=== PATIENT | female | born 1940 | race American Indian/Alaskan Native ===

== ENCOUNTER 2016-10-23 15:31 | Emergency (ER) | payer MEDICARE, OTHER ==
[2016-10-23 15:32] VITALS: BMI 27.6
[2016-10-23 16:11] VITALS: O2SAT 100
--- NOTE | 2016-10-23 17:45 | RAD ---
PROCEDURE: Right Foot Radiographs. HISTORY: Pain, r/o fx COMPARISON: None. FINDINGS: BONES: No evidence of acute fracture. There are small calcific densities adjacent to the lateral base of the 5th distal phalanx. These may be, possibly related to old trauma. Comparison to any prior outside examination is advised. Clinical follow-up is suggested. Unlikely neoplastic origin. . JOINTS: Normal. SOFT TISSUES: Mild generalized soft tissue swelling. OTHER FINDINGS: None. IMPRESSION: No acute fracture. Calcific densities adjacent to the lateral base of the 5th distal phalanx. Likely dystrophic. Cannot rule out calcification related to neoplastic etiology though unlikely. Please correlate with any prior outside examination. Clinical followup advised.
--- NOTE | 2016-10-23 17:50 | C.PDOC ---
History Of Present Illness Pt states she injured her right foot about 1 week ago. She has mild pain since. She also has swelling, but she states that has been there for a long time. Time Seen by Provider: 10/23/16 16:34 Chief Complaint (Nursing): Lower Extremity Problem/Injury History Per: Patient, Family Onset/Duration Of Symptoms: Days (about 1 week) Current Symptoms Are (Timing): Still Present Severity: Moderate Additional History Per: Prior Records Past Medical History Reviewed: Historical Data, Nursing Documentation, Vital Signs Vital Signs: Last Vital Signs Temp 98.4 F 10/23/16 16:06 Pulse 81 10/23/16 16:06 Resp 17 10/23/16 16:06 BP 155/85 H 10/23/16 16:06 Pulse Ox 100 10/23/16 16:06 - Medical History PMH: HTN, Hyperlipidemia, Peripheral Edema - [facility] Procedures BREAST DX PROCEDURE NEC (08/04/13) PERCUTAN NEEDLE BIOPSY OF BREAST (08/04/13) X-RAY NEC AND NOS (08/04/13) Family History: States: Unknown Family Hx - Social History Hx Alcohol Use: Yes ("occassionally) Hx Substance Use: No - Immunization History Hx Tetanus Toxoid Vaccination: No Hx Influenza Vaccination: Yes (2017) Hx Pneumococcal Vaccination: No Review Of Systems Except As Marked, All Systems Reviewed And Found Negative. Constitutional: Negative for: Fever, Weakness Cardiovascular: Negative for: Chest Pain Respiratory: Negative for: Shortness of Breath Gastrointestinal: Negative for: Vomiting, Abdominal Pain Musculoskeletal: Positive for: Foot Pain (right). Negative for: Neck Pain, Leg Pain Neurological: Negative for: Weakness, Numbness, Seizures, Altered Mental Status Physical Exam - Physical Exam Appears: Non-toxic, No Acute Distress Skin: Normal Color, Warm, Dry Head: Atraumatic, Normacephalic Eye(s): bilateral: PERRL, EOMI Neck: Normal ROM, Supple Cardiovascular: Rhythm Regular Respiratory: Normal Breath Sounds, No Accessory Muscle Use Gastrointestinal/Abdominal: Soft, No Tenderness Back: No CVA Tenderness, No Vertebral Tenderness Extremity: Normal ROM, Tenderness (mild right foot), Pedal Edema (right), No Calf Tenderness, Capillary Refill (wnl) Extremity: Bilateral: Normal Color And Temperature Pulses: Left Dorsalis Pedis: Normal, Right Dorsalis Pedis: Normal Neurological/Psych: Oriented x3, Normal Motor, Normal Sensation ED Course And Treatment O2 Sat by Pulse Oximetry: 100 Pulse Ox Interpretation: Normal - Other Rad Right foot/ankle x-rays X-Ray: Interpreted by Me, Viewed By Me Interpretation: No acute fx or dislocation. Progress Note: I want to order a RLE duplex to r/o DVT, however it is not available at this time. I instructed the pt to return in the morning for the test. Disposition Counseled Patient/Family Regarding: Studies Performed, Diagnosis, Need For Followup - Disposition Referrals: Omari Rodriguez MD [Staff Provider] - Disposition: HOME/ ROUTINE Disposition Time: 17:51 Condition: STABLE Additional Instructions: Return to the ER tomorrow for an ultrasound of the right leg to rule out a blood clot. Return to the ER immediately if you develop chest pain, shortness of breath, worsening of symptoms or if you have any other concerns. Instructions: Foot Sprain (ED) - Clinical Impression Clinical Impression: Right foot pain
[2016-10-23 18:11] VITALS: BP 178/108; PULSE 77; RESP 20; TEMP 97.4
[2016-10-23] MEDS ORDERED: Losartan 12.5 MG TAB PO STA (18:15)
--- NOTE | 2016-10-23 18:44 | RAD ---
PROCEDURE: Right Ankle Radiographs. HISTORY: Swelling COMPARISON: None FINDINGS: BONES: Small plantar calcaneal spur. No fracture. JOINTS: Normal. No osteoarthritis. Ankle mortise maintained. Talar dome intact SOFT TISSUES: Circumferential soft tissue swelling about lower extremity and ankle. OTHER FINDINGS: None. IMPRESSION: Diffuse soft tissue swelling. Incidental plantar calcaneal spur.
== END 2016-10-23 18:43 | disposition home or self-care (01) ==
LOC: C.ER 15:31
DX: M79.671 Pain in right foot (principal)

== ENCOUNTER 2016-10-24 08:15 | Emergency (ER) | payer MEDICARE ==
[2016-10-24 08:15] VITALS: BMI 27.6
[2016-10-24 08:28] VITALS: RESP 18; TEMP 98.2; O2SAT 99
--- NOTE | 2016-10-24 08:58 | C.PDOC ---
History Of Present Illness 76 y/o female presents to the ED for doppler scan of right lower extremity. Pt seen in ED yesterday for right ankle and leg swelling, XR performed and instructed to return to ED today for doppler scan. Pt denies pain, chest pain, SOB, fever or any other complaints. Time Seen by Provider: 10/24/16 08:24 Chief Complaint (Nursing): Medical Clearance History Per: Patient History/Exam Limitations: no limitations Onset/Duration Of Symptoms: Days Current Symptoms Are (Timing): Still Present Severity: Moderate Reports Recently: Seen In ED Recent travel outside of the [place]: No Past Medical History Reviewed: Historical Data, Nursing Documentation, Vital Signs Vital Signs: Last Vital Signs Temp 98.2 F 10/24/16 08:25 Pulse 71 10/24/16 09:42 Resp 18 10/24/16 09:42 BP 176/95 H 10/24/16 09:42 Pulse Ox 99 10/24/16 09:42 - Medical History PMH: HTN, Hyperlipidemia, Peripheral Edema Denies: Chronic Kidney Disease Surgical History: No Surg Hx - [facility] Procedures BREAST DX PROCEDURE NEC (08/04/13) PERCUTAN NEEDLE BIOPSY OF BREAST (08/04/13) X-RAY NEC AND NOS (08/04/13) Family History: States: Unknown Family Hx - Social History Hx Alcohol Use: Yes ("occassionally) Hx Substance Use: No - Immunization History Hx Tetanus Toxoid Vaccination: No Hx Influenza Vaccination: Yes (2017) Hx Pneumococcal Vaccination: No Review Of Systems Except As Marked, All Systems Reviewed And Found Negative. Constitutional: Negative for: Fever Cardiovascular: Negative for: Chest Pain Respiratory: Negative for: Shortness of Breath Musculoskeletal: Positive for: Other (right ankle and leg swelling). Negative for: Leg Pain Physical Exam - Physical Exam Appears: Non-toxic, No Acute Distress Skin: Warm, Dry, No Rash Head: Atraumatic, Normacephalic Chest: Symmetrical Cardiovascular: Rhythm Regular, No Murmur Respiratory: Normal Breath Sounds, No Rales, No Rhonchi, No Wheezing Gastrointestinal/Abdominal: Normal Exam, Soft, No Tenderness Extremity: Normal ROM, No Calf Tenderness, Capillary Refill (<2 seconds), Swelling (right lower extremity) Pulses: Left Dorsalis Pedis: Normal, Right Dorsalis Pedis: Normal Neurological/Psych: Oriented x3, Normal Speech, Normal Motor, Normal Sensation ED Course And Treatment O2 Sat by Pulse Oximetry: 99 (room air) Pulse Ox Interpretation: Normal Progress Note: Plan: venous duplex right lower extremity. Venous doppler (-) DVT Reassessment Condition: Unchanged Disposition Counseled Patient/Family Regarding: Studies Performed, Diagnosis - Disposition Disposition: HOME/ ROUTINE Disposition Time: 09:50 Condition: STABLE Additional Instructions: Follow up with your PMD for further evaluation Follow up with PMD for repeat B/P Instructions: Leg Edema (ED), Hypertension (ED), Leg Pain (ED) - POA Present On Arrival: None - Clinical Impression Clinical Impression: Leg pain - PA / RESIDENT SERVICES COORDINATOR / Resident Statement MD/DO has reviewed & agrees with the documentation as recorded. - Scribe Statement The provider has reviewed the documentation as recorded by the Scribsabas Sotelo All medical record entries made by the Toshia were at my direction and personally dictated by me. I have reviewed the chart and agree that the record accurately reflects my personal performance of the history, physical exam, medical decision making, and the department course for this patient. I have also personally directed, reviewed, and agree with the discharge instructions and disposition.
[2016-10-24 09:43] VITALS: BP 176/95; PULSE 71
--- NOTE | 2016-10-25 10:24 | VASCLAB ---
PROCEDURE: Right Lower Extremity Venous Duplex Exam. HISTORY: swelling PRIORS: None. TECHNIQUE: Right common femoral, femoral, popliteal and posterior tibial, peroneal and great saphenous veins were evaluated. Flow was assessed with color Doppler, compressibility, assessment of phasic flow and augmentation response. Report prepared by CAROLYNE Angulo FINDINGS: RIGHT: 1. Common Femoral Vein: 1.1. Compressibility - Fully compressible: Thrombus - None: Flow - Phasic: Augmentation -Normal: Reflux - None. 2. Femoral Vein: 2.1. Compressibility - Fully compressible: Thrombus - None: Flow - Phasic: Augmentation -Normal: Reflux - None. 3. Popliteal Vein: 3.1. Compressibility - Fully compressible: Thrombus - None: Flow - Phasic: Augmentation -Normal: Reflux - None. 4. Posterior Tibial Vein: 4.1. Compressibility - Fully compressible: Thrombus - None: Flow - Phasic: Augmentation -Normal: Reflux - None. 5. Peroneal Vein: 5.1. Compressibility - Fully compressible: Thrombus - None: Flow - Phasic: Augmentation -Normal: Reflux - None. 6. Great Saphenous Vein: 6.1. Compressibility - Fully compressible: Thrombus -None: Flow - Phasic: Augmentation - Normal: Reflux - None. OTHER FINDINGS: IMPRESSION: No evidence of deep or superficial vein thrombosis of the right lower extremity with excellent venous flow. Normal valve function noted of the right side. Normal venous flow noted in the left common femoral vein.
== END 2016-10-24 09:48 | disposition home or self-care (01) ==
LOC: C.ER 08:15
DX: M79.661 Pain in right lower leg (principal)

== ENCOUNTER 2016-11-12 16:51 | Emergency (ER) | payer MEDICARE ==
[2016-11-12 16:51] VITALS: BMI 27.6
[2016-11-12 17:00] VITALS: BP 168/94; PULSE 80; TEMP 98.4; O2SAT 98
--- NOTE | 2016-11-12 17:26 | C.PDOC ---
History Of Present Illness 76 yr old female presents to the ER with complaints of new onset of discoloration beneath bilateral eyes since morning. Patient also reports of new onset of green discoloration to the right 5th finger for the past 1 week. Patient denies trauma, fever, eye redness, burning sensation, vision changes, hand pain, weakness or numbness. NEW ONSET REDDISH DISCOLORATION BENEATH B/L EYES SINCE THIS MORNING. NO EYE REDNESS, DC, BURNING, VISION CHANGE. NO TRAUMA. ALSO CO NEW ONSET GREEN DISCOLORATION R 5TH FINGER X 1 WEEK. EXAM HEENT +RED PIGMENT ON SKIN B/L LOWER EYELID, EASILY REMOVED W SALINE WASH. NO CONJUNCTIVITIS, DC, EYELID SWELL. PERRLA, EOMI SKIN +GREEN DISCOLORATION PROX L 5 FINGERNAIL C/W PSEUDOMONAS. NO PARONYCHYA, REDNESS, SWELL FINGER. NONTEND Time Seen by Provider: 11/12/16 17:12 Chief Complaint (Nursing): Eye Problem History Per: Patient History/Exam Limitations: no limitations Onset/Duration Of Symptoms: Days, Sudden Onset Past Medical History Reviewed: Historical Data, Nursing Documentation, Vital Signs Vital Signs: Last Vital Signs Temp 98.4 F 11/12/16 16:58 Pulse 80 11/12/16 16:58 Resp 16 11/12/16 16:58 BP 168/94 H 11/12/16 16:58 Pulse Ox 98 11/12/16 17:29 - Medical History PMH: HTN, Hyperlipidemia, Peripheral Edema - [facility] Procedures BREAST DX PROCEDURE NEC (08/04/13) PERCUTAN NEEDLE BIOPSY OF BREAST (08/04/13) X-RAY NEC AND NOS (08/04/13) Family History: States: No Known Family Hx - Social History Hx Alcohol Use: Yes ("occassionally) Hx Substance Use: No - Immunization History Hx Tetanus Toxoid Vaccination: No Hx Influenza Vaccination: Yes (2017) Hx Pneumococcal Vaccination: No Review Of Systems Except As Marked, All Systems Reviewed And Found Negative. Constitutional: Negative for: Fever Eyes: Positive for: Other ((+) Discoloration beneath bilateral eyes ). Negative for: Pain, Vision Change, Redness Musculoskeletal: Positive for: Other ((+) Green discoloration to the right 5th finger ). Negative for: Hand Pain Neurological: Negative for: Weakness, Numbness Physical Exam - Physical Exam Appears: Non-toxic, No Acute Distress Skin: Warm, Dry, No Rash, Other ((+) Green discoloration proximal L 5th fingernail consistent with pseudomonas. No paronychya, redness, swelling to the finger and tenderness. ) Head: Atraumatic, Normacephalic Eye(s): bilateral: PERRL, EOMI, Other (+Red pigment on skin bilateral lower eyelid. Easily removed with saline wash. No conjunctivitis, dischagre, eyelid swelling. ) Oral Mucosa: Moist Chest: Symmetrical, No Tenderness Cardiovascular: Rhythm Regular, No Murmur Respiratory: Normal Breath Sounds, No Rales, No Rhonchi, No Stridor, No Wheezing Extremity: Normal ROM, Capillary Refill (<2), No Swelling Neurological/Psych: Oriented x3, Normal Speech, Normal Motor, Normal Sensation ED Course And Treatment O2 Sat by Pulse Oximetry: 98 (RA ) Pulse Ox Interpretation: Normal Disposition Counseled Patient/Family Regarding: Diagnosis, Need For Followup - Disposition Referrals: YOUR,PMD/GROCERY SPECIALIST [Other] Disposition: HOME/ ROUTINE Disposition Time: 17:26 Condition: GOOD Additional Instructions: GREEN NAIL SYNDROME Topical antibiotics, such as bacitracin or polymyxin B, applied two to four times per day will cure most patients if continued for one to four months. Alternatively, chlorine bleach, diluted 1:4 with water, is effective in suppressing growth of P. aeruginosa when applied topically to affected nails. SEE GROCERY SPECIALIST AND/OR PMD FOR FURTHER MANAGEMENT OF POSSIBLE NAIL FUNGAL INFECTION. Forms: General Discharge Instructions - Clinical Impression Clinical Impression: Green nails, Discoloration of skin - Scribe Statement The provider has reviewed the documentation as recorded by the Toshia Lowery Provider Attestation: All medical record entries made by the Toshia were at my direction and personally dictated by me. I have reviewed the chart and agree that the record accurately reflects my personal performance of the history, physical exam, medical decision making, and the department course for this patient. I have also personally directed, reviewed, and agree with the discharge instructions and disposition.
[2016-11-12 17:35] VITALS: RESP 18
== END 2016-11-12 17:35 | disposition home or self-care (01) ==
LOC: C.ER 16:51
DX: L98.8 Other specified disorders of the skin and subcutaneous tissue (principal); L60.8 Other nail disorders

== ENCOUNTER 2017-12-04 08:02 | Day surgery (SDC) | payer MEDICARE ==
[2017-11-21 09:32] VITALS: BMI 27.4
[~2017-12-04 08:02] MED LIST: Carbachol 0.01% IO ONE; Chondroitin/Hyaluronate Opth Syringe KIT (0.55 ml-0.5 ml) IO ONE; Hyaluronidase Human, Recombi 150 U/ML VIAL ONE; Lidocaine 2% MPF (5 ml) Inj ONE; Tobramycin/Dexamethasone OPHT OINT ONE
[2017-12-04] MEDS ORDERED: Phenylephrine 2.5% Opht Soln OS SCH (09:45)
[2017-12-04] MEDS ORDERED: Tropicamide 0.5% Opht Sol OS SCH (09:45)
[2017-12-04] MEDS ORDERED: Midazolam 2 MG/2 ML VIAL ONE (10:01)
[2017-12-04] MEDS ORDERED: Lidocaine 2% MPF (5 ml) Inj INJ ONE (10:05)
[2017-12-04] MEDS: Tetracaine 0.5% Ophth (OR ONLY) ONE ×2 (10:08→10:11)
[2017-12-04] MEDS ORDERED: Lactated Ringer's 1,000 ML IV SCH (10:45)
[2017-12-04] MEDS ORDERED: acetaZOLAMIDE 500 mg SR Cap PO ONE (11:12)
[2017-12-04 11:44] VITALS: BP 146/93; PULSE 70; RESP 17; TEMP 97.3; O2SAT 100
--- NOTE | 2017-12-04 22:53 | OP ---
Copied To: Deandre Loomis MD Attending MD: Deandre Loomis MD PROCEDURE DATE: 12/04/2017 PREOPERATIVE DIAGNOSIS: Cataract, left eye. POSTOPERATIVE DIAGNOSIS: Cataract, left eye. OPERATIVE PROCEDURE: Phacoemulsification, left eye, insertion of posterior chamber lens implant. SURGEON: Deandre Loomis MD. COSURGEON: Lev Paige MD ANESTHESIA TYPE: Local with intravenous sedation. PROCEDURE: The patient was brought into the operating room, placed in supine position, prepped and draped in the usual fashion for ophthalmic surgery. Lid speculum was inserted, lids and exposing globe. A side-port incision was made superiorly and inferiorly with a disposable sharp blade. Anterior chamber was filled with Viscoat. A near clear corneal incision was made temporally with a 2.75-mm keratome. Capsulorrhexis was then performed with Utrata forceps. Hydrodissection carried out with balanced salt solution. Nucleus was phacoemulsified. Remaining cortical fragments were removed with a split irrigation and aspiration system. The capsular sac was filled with Provisc. A posterior chamber lens was then injected into the capsular sac and rotated into horizontal position. Provisc was aspirated out of the anterior chamber. The pupil was constricted with Miochol. The wound was found to be watertight. Topical Betadine, Timoptic, and TobraDex ointment and pressure patch were applied. The patient tolerated the procedure well. Deandre Loomis MD
== END 2017-12-04 11:48 | disposition home or self-care (01) ==
LOC: C.SDS 08:02
PROVIDERS: ATTEND Ophthalmology
DX: H25.89 Other age-related cataract (principal)
CPT/HCPCS: 66984; 82948; J2250; J3010; J3470